=== PATIENT | female | born 1935 | race Caucasian/White ===

== ENCOUNTER 2020-11-05 15:14 | Emergency (ER) | payer MEDICARE, OTHER ==
[~2020-11-05] VITALS: Ht 162.6 cm; Wt 63.5 kg
[2020-11-05 16:36] LABS: HEMATOCRIT 39.1 % (37.0-47.0); HEMOGLOBIN 13.4 gm/dL (12.0-15.0); MCH 31.7 pg (26.0-34.0); MCHC 34.4 g/dL (28.0-37.0); MCV 92.2 fL (80.0-100.0); MPV 6.9 fl. (7.2-11.1); NUCLEATED RBCS 0 /100WBC; PLATELET COUNT* 356 thou/uL (150-400); RBC 4.24 mil/uL (4.20-5.00); RDW-CV 13.6 % (10.5-14.5); WBC 9.8 thou/uL (4.0-11.0)
[2020-11-05 16:46] LABS: CALCIUM 9.3 mg/dL (8.5-10.1); CREATININE 0.9 mg/dL (0.6-1.3); POTASSIUM 4.3 mmol/L (3.5-5.1)
[2020-11-05 16:51] LABS: ALBUMIN 3.5 g/dL (3.4-5.0); TOTAL PROTEIN 7.1 g/dL (6.4-8.2)
[2020-11-05 17:02] LABS: TOTAL BILIRUBIN 0.2 mg/dL (<0.1-1.0)
[2020-11-05 17:07] LABS: ABSOLUTE LYMPHOCYTES 0.8 thou/uL (0.8-5.3); ABSOLUTE MONOCYTES 0.6 thou/uL (0.0-1.2); ABSOLUTE NEUTROPHILS 8.4 thou/uL (1.6-8.1)
[2020-11-05 17:08] LABS: PLATELET ESTIMATE ADEQUATE
[2020-11-05 17:59] LABS: URINE BILIRUBIN NEGATIVE (Negative); URINE BLOOD 1+ (Negative); URINE CLARITY CLEAR; URINE COLOR YELLOW; URINE GLUCOSE-RANDOM NEGATIVE (Negative); URINE KETONES NEGATIVE (Negative); URINE LEUKOCYTES-REFLEX NEGATIVE (Negative); URINE NITRITE-REFLEX NEGATIVE (Negative); URINE PROTEIN NEGATIVE (Negative); URINE SPECIFIC GRAVITY 1.025 (1.005-1.030); URINE UROBILINOGEN 0.2 E.U./dl (0.2-1.0)
[2020-11-05 18:20] LABS: CRYSTALS None Seen /LPF (None Seen); HYALINE CASTS 0-3 Few /LPF (None Seen); MUCUS None Seen strn/LPF (None Seen); SQUAMOUS NONE SEEN /LPF (0-3); URINE RBC 0-2 Rare /HPF (0-2)
[2020-11-05 18:21] VITALS: BP 174/72
[2020-11-05 18:21] LABS: BACTERIA-REFLEX None Seen /HPF (None Seen); URINE WBC-REFLEX None Seen /HPF (0-5)
--- NOTE | 2020-11-06 11:02 | EKG ---
[place] [address] ELECTROCARDIOGRAM REPORT Name: JOSE ALFREDO LEE Room: [facility]#: [id number] Admission: 11/05/20 Attend Phys: Discharge: 11/05/20 Date of : 33 Date of Service: 11/05/20 1620 Report #: [id number] THIS REPORT FOR: //name// [facility] ED Test Date: 2020-11-05 Test Time: 16:20:02 Pat Name: JOSE ALFREDO LEE Department: Room: Gender: Senior Accounting Clerk: : 1935 Requested By: Nando Langley Order Number: [id number] MD: Ezekiel Mcclain Measurements Intervals [place] Rate: 76 P: 54 TX: 156 QRS: 17 QRSD: 97 T: 42 QT: 399 QTc: 449 Interpretive Statements Sinus rhythm Probable left atrial enlargement RSR' in V1 or V2, right VCD No previous ECG available for comparison Electronically Signed On 11-06-2020 11:02:42 CDT by Ezekiel Mcclain [email or web address] <ELECTRONICALLY SIGNED> By: Ezekiel Mcclain MD, [facility] 11/06/20 1102 1620 1620 Ezekiel Mcclain MD, [facility] /EPI
== END 2020-11-05 18:21 | disposition home or self-care (01) ==
LOC: M.ERS 15:14
PROVIDERS: Nurse Practitioner Psychiatric/Mental Health
DX: R51.9 Headache, unspecified (principal); M41.9 Scoliosis, unspecified; Z88.5 Allergy status to narcotic agent; Z88.2 Allergy status to sulfonamides; Z88.0 Allergy status to penicillin; Z88.7 Allergy status to serum and vaccine; Z88.8 Allergy status to other drugs, medicaments and biological substances; Z91.012 Allergy to eggs; Z91.018 Allergy to other foods; Z86.73 Personal history of transient ischemic attack (TIA), and cerebral infarction without residual deficits; Z90.89 Acquired absence of other organs